=== PATIENT | female | born 1995 | race Caucasian/White ===

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

== ENCOUNTER 2017-03-21 18:14 | Emergency (ER) | payer OTHER ==
[~2017-03-21] VITALS: Ht 157.5 cm; Wt 90.0 kg
[~2017-03-21 18:14] MED LIST changes: -IBUP800T23 PO; -ROBA500T PO; +ZOFR4TAB PO
[2017-03-21 18:19] VITALS: BP 140/74; PULSE 112; RESP 20; TEMP 98.6; O2SAT 97
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
== END 2017-03-21 20:19 | disposition home or self-care (01) ==
LOC: NEPD 18:14
DX: S16.1XXA Strain of muscle, fascia and tendon at neck level, initial encounter (principal); V49.40XA Driver injured in collision with unspecified motor vehicles in traffic accident, initial encounter; Y92.488 Other paved roadways as the place of occurrence of the external cause
CPT/HCPCS: 72125; 99284; L1830